=== PATIENT | female | born 1990 | race Caucasian/White ===

== ENCOUNTER 2016-08-24 20:02 | Emergency (ER) | payer OTHER ==
[2016-08-24 20:12] VITALS: TEMP 97.7; BMI 28.6
[2016-08-24 20:27] LABS: AUTOMATED BASOPHIL 1.5 % (0-2); AUTOMATED LYMPH 25.6 % (17-44); AUTOMATED MONOCYTE 4.9 % (3-10); MPV 9.6 fL (7.4-10.4)
[2016-08-24 20:39] LABS: LEUKOCYTES/URINE NEG (NEGATIVE); NITRITE/URINE NEG (NEGATIVE); RBC/URINE 0-2 (0-5); URINE OCCULT BLOOD NEG (NEG/TRACE); WBC/URINE 0-2 (0-5)
[2016-08-24 20:41] LABS: BLOOD UREA NITROGEN 11 MG/DL (7-17); CALCIUM 9.1 MG/DL (8.4-10.2); CALCULATED OSMOLALITY 270 MOs/Kg (270-290); CHLORIDE 104 mEq/L (98-107); GLUCOSE 97 MG/DL (70-99); SODIUM LEVEL 141 mEq/L (137-146); TOTAL PROTEIN 7.8 G/DL (6.3-8.2)
[2016-08-25] MEDS ORDERED: POTASSIUM CHLORIDE 20 MEQ TAB PO STA (01:11)
--- NOTE | 2016-08-25 01:15 | EDPRACDOC ---
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 ED Past Medical History - History Reviewed Yes Nurses notes reviewed and agree except as marked - Patient Medical History Respiratory History: Reports: Asthma GI/ History: Denies: Urinary Tract Infection Psychological History: Reports: Anxiety. Denies: Depression - Social Medical History Smoking Status: Never smoker Lives With: Family Lives In: Home EDM Review of Systems - Review of Systems ROS Negative Except as Marked: Yes All systems reviewed and were negative except as marked Constitutional: Fatigue. negative: Fever Respiratory: Shortness of Breath. negative: Cough Cardiovascular: negative: Chest Pain Gastrointestinal: negative: Pain, Vomiting Genitourinary: negative: Dysuria, - Physical Exam Constitutional: Alert Oriented to: Time, Person, Place Last recorded Vital Signs: Last Vital Signs Temp 97.7 F 08/24/16 20:09 Pulse 91 08/24/16 20:09 Resp 20 08/24/16 20:09 BP 140/81 08/24/16 20:09 Pulse Ox 100 08/24/16 20:09 Oxygen Pulse Oxygen Saturation 100 O2 Device Room Air Oxygen Flow Rate Fraction of Inspired Oxygen ( FIO2) - HEENT Head: negative: Deformity, Laceration Eye Exam: negative: Conjunctival Injection, Pale Conjunctiva Oropharynx: negative: Membranes Dry Nose: negative: Congestion, Discharge Neck: negative: Limited ROM - Respiratory/Cardiovascular Respiratory: Normal - CTA. negative: Accessory Muscle Use, Diminished, Tachypnea Cardiovascular: negative: Bradycardia, Tachycardia, Irregular - Integumentary Skin: Warm, Dry. negative: Rash - Neurologic Memory Impaired: Normal Motor Function: Normal Mood Description: Anxious, Appropriate Thought: Coherent Perception: Normal - Results 08/24/16 20:11 08/24/16 20:11 WBC 8.4 xk/uL (3.8-10.8) 08/24/16 20:11 RBC 4.68 xM/uL (4.20-5.40) 08/24/16 20:11 Hgb 13.9 g/dL (12.0-16.0) 08/24/16 20:11 Hct 41.0 % (36-47) 08/24/16 20:11 MCV 88 fL (81-99) 08/24/16 20:11 MCH 29.8 pg (27-32) 08/24/16 20:11 MCHC 34.0 g/dl (33-36) 08/24/16 20:11 RDW 13.5 % (11.5-14.5) 08/24/16 20:11 Plt Count 226 xk/uL (130-400) 08/24/16 20:11 MPV 9.6 fL (7.4-10.4) 08/24/16 20:11 Neut % (Auto) 65.0 % (45-76) 08/24/16 20:11 Lymph % (Auto) 25.6 % (17-44) 08/24/16 20:11 [place] % (Auto) 4.9 % (3-10) 08/24/16 20:11 Eos % (Auto) 3.0 % (0-5) 08/24/16 20:11 Baso % (Auto) 1.5 % (0-2) 08/24/16 20:11 Absolute Neuts (auto) 5.46 xk/uL (1.7-8.2) 08/24/16 20:11 Absolute Lymphs (auto) 2.10 xk/uL (0.65-4.75) 08/24/16 20:11 Sodium 141 mEq/L (137-146) 08/24/16 20:11 Potassium 3.3 mEq/L (3.5-5.1) L 08/24/16 20:11 Chloride 104 mEq/L (98-107) 08/24/16 20:11 Carbon Dioxide 22 mMOL/L (22-33) 08/24/16 20:11 Anion Gap 18 mEq/L (8-16) H 08/24/16 20:11 BUN 11 MG/DL (7-17) 08/24/16 20:11 Creatinine 0.50 MG/DL (0.52-1.04) L 08/24/16 20:11 Estimated GFR (MDRD) > 60 mL/min (>=60) 08/24/16 20:11 Glucose 97 MG/DL (70-99) 08/24/16 20:11 Calculated Osmolality 270 MOs/Kg (270-290) 08/24/16 20:11 Calcium 9.1 MG/DL (8.4-10.2) 08/24/16 20:11 Total Bilirubin 0.7 MG/DL (0.2-1.3) 08/24/16 20:11 AST 15 IU/L (14-36) 08/24/16 20:11 ALT 20 IU/L (9-52) 08/24/16 20:11 Alkaline Phosphatase 91 IU/L (38-126) 08/24/16 20:11 Total Protein 7.8 G/DL (6.3-8.2) 08/24/16 20:11 Albumin 4.4 G/DL (3.5-5.0) 08/24/16 20:11 Urine Color Yellow 08/24/16 20:11 Urine Clarity Clear 08/24/16 20:11 Urine pH 5.0 (5.0-8.0) 08/24/16 20:11 Ur Specific [place] 1.035 (1.003-1.035) 08/24/16 20:11 Urine Protein Trace (NEG/TRACE) 08/24/16 20:11 Urine Glucose (UA) Neg (NEGATIVE) 08/24/16 20:11 Urine Ketones Neg (NEGATIVE) 08/24/16 20:11 Urine Occult Blood Neg (NEG/TRACE) 08/24/16 20:11 Urine Nitrite Neg (NEGATIVE) 08/24/16 20:11 Urine Bilirubin Neg (NEGATIVE) 08/24/16 20:11 Urine Urobilinogen 0.2 MG/DL (0-1) 08/24/16 20:11 Ur Leukocyte Esterase Neg (NEGATIVE) 08/24/16 20:11 Urine RBC 0-2 (0-5) 08/24/16 20:11 Urine WBC 0-2 (0-5) 08/24/16 20:11 Ur Epithelial Cells 1+ 08/24/16 20:11 Urine Bacteria Few (NEG/FEW) 08/24/16 20:11 Urine Mucus Sm amt (NEG/OCC) 08/24/16 20:11 Urine Test Neg (NEGATIVE) 01/21/17 20:11 Lab Results 08/24/16 08/24/16 08/24/16 20:11 20:11 20:11 WBC 8.4 RBC 4.68 Hgb 13.9 Hct 41.0 MCV 88 MCH 29.8 MCHC 34.0 RDW 13.5 Plt Count 226 MPV 9.6 Neut % (Auto) 65.0 Lymph % (Auto) 25.6 [place] % (Auto) 4.9 Eos % (Auto) 3.0 Baso % (Auto) 1.5 Absolute Neuts (auto) 5.46 Absolute Lymphs (auto) 2.10 Sodium Potassium Chloride Carbon Dioxide Anion Gap BUN Creatinine Estimated GFR (MDRD) Glucose Calculated Osmolality Calcium Total Bilirubin AST ALT Alkaline Phosphatase Total Protein Albumin Urine Color Yellow Urine Clarity Clear Urine pH 5.0 Ur Specific [place] 1.035 Urine Protein Trace Urine Glucose (UA) Neg Urine Ketones Neg Urine Occult Blood Neg Urine Nitrite Neg Urine Bilirubin Neg Urine Urobilinogen 0.2 Ur Leukocyte Esterase Neg Urine RBC 0-2 Urine WBC 0-2 Ur Epithelial Cells 1+ Urine Bacteria Few Urine Mucus Sm amt Urine Test Neg 08/24/16 20:11 WBC RBC Hgb Hct MCV MCH MCHC RDW Plt Count MPV Neut % (Auto) Lymph % (Auto) [place] % (Auto) Eos % (Auto) Baso % (Auto) Absolute Neuts (auto) Absolute Lymphs (auto) Sodium 141 Potassium 3.3 L Chloride 104 Carbon Dioxide 22 Anion Gap 18 H BUN 11 Creatinine 0.50 L Estimated GFR (MDRD) > 60 Glucose 97 Calculated Osmolality 270 Calcium 9.1 Total Bilirubin 0.7 AST 15 ALT 20 Alkaline Phosphatase 91 Total Protein 7.8 Albumin 4.4 Urine Color Urine Clarity Urine pH Ur Specific [place] Urine Protein Urine Glucose (UA) Urine Ketones Urine Occult Blood Urine Nitrite Urine Bilirubin Urine Urobilinogen Ur Leukocyte Esterase Urine RBC Urine WBC Ur Epithelial Cells Urine Bacteria Urine Mucus Urine Test - EKG EKG #1 EKG Time: 01:41 -: Yes EKG interpreted by me Rate: bpm: [address] [place]: Normal Rhythm: NSR Block: None ST: Normal Decision Time to Discharge: 02:45 - Departure Yes I personally saw and evaluated the patient. Disposition: Home Condition: Stable Final Diagnosis: Hypokalemia Fatigue Qualifiers: Fatigue type: unspecified Qualified Code(s): R53.83 - Other fatigue Instructions: Hypokalemia (ED), Dehydration Education/Counseling Given To: Patient, Family Member Education/Counseling Given Regarding: Diagnosis, Treatment, Prognosis, Follow Up Referrals: Azam Cannon MD [Primary Care Provider] - Call for Appointment Additional Instructions: MAKE SURE TO TAKE IN PLENTY OF FLUIDS.
[2016-08-25 02:59] VITALS: BP 142/81; PULSE 86
== END 2016-08-25 03:00 | disposition home or self-care (01) ==
LOC: ED 20:02
DX: E87.6 Hypokalemia (principal); R53.83 Other fatigue
CPT/HCPCS: 36415; 80053; 81001; 81025; 84484; 85025; 85379; 93005; 99284; J3490